=== PATIENT | male | born 1955 | race Caucasian/White ===

== ENCOUNTER → 2020-09-15 09:19 | Outpatient (BNVA) | payer OTHER, SELFPAY | PROVIDERS: Family Provider Nurse Practitioner Family; PCP Nurse Practitioner Family; Visit Provider Registered Nurse | DX: I10 Essential (primary) hypertension (principal); L82.1 Other seborrheic keratosis; Z85.828 Personal history of other malignant neoplasm of skin | CPT/HCPCS: 80053; 80061; 81000; 85025 ==

== ENCOUNTER → 2021-02-27 16:16 | Outpatient (BNVA) | payer OTHER, SELFPAY | PROVIDERS: Family Provider Nurse Practitioner Family; PCP Nurse Practitioner Family; Visit Provider Registered Nurse | DX: R39.9 Unspecified symptoms and signs involving the genitourinary system (principal) | CPT/HCPCS: 81000; 87086 ==

== ENCOUNTER → 2021-10-25 09:56 | Outpatient (BNVA) | payer OTHER, SELFPAY | PROVIDERS: Family Provider Nurse Practitioner Family; PCP Nurse Practitioner Family; Visit Provider Registered Nurse | DX: Z12.5 Encounter for screening for malignant neoplasm of prostate (principal); I10 Essential (primary) hypertension; E78.5 Hyperlipidemia, unspecified | CPT/HCPCS: 80053; 80061; 84153; 85025 ==

== ENCOUNTER → 2022-09-25 09:39 | Outpatient (BNVA) | payer MEDICARE, OTHER, SELFPAY | PROVIDERS: Family Provider Nurse Practitioner Family; PCP Registered Nurse; Visit Provider Registered Nurse | DX: I10 Essential (primary) hypertension (principal); Z12.5 Encounter for screening for malignant neoplasm of prostate | CPT/HCPCS: 80053; 80061; 85025; G0103 ==

== ENCOUNTER → 2023-07-31 08:48 | Outpatient (BNVA) | payer MEDICARE, OTHER, SELFPAY | PROVIDERS: Family Provider Nurse Practitioner Family; PCP Registered Nurse; Visit Provider Registered Nurse | DX: Z00.00 Encounter for general adult medical examination without abnormal findings (principal); Z12.5 Encounter for screening for malignant neoplasm of prostate; I10 Essential (primary) hypertension; Z71.85 Encounter for immunization safety counseling; Z71.3 Dietary counseling and surveillance; Z71.82 Exercise counseling; R79.89 Other specified abnormal findings of blood chemistry | CPT/HCPCS: 80053; 84402; 84403; 85025; G0103 ==

== ENCOUNTER → 2023-08-01 13:14 | Outpatient (BNVA) | payer MEDICARE, OTHER, SELFPAY | PROVIDERS: Family Provider Nurse Practitioner Family; PCP Registered Nurse; Visit Provider Registered Nurse | DX: Z00.00 Encounter for general adult medical examination without abnormal findings (principal); Z12.5 Encounter for screening for malignant neoplasm of prostate; I10 Essential (primary) hypertension; Z71.85 Encounter for immunization safety counseling; Z71.3 Dietary counseling and surveillance; Z71.82 Exercise counseling; R79.89 Other specified abnormal findings of blood chemistry; R73.9 Hyperglycemia, unspecified | CPT/HCPCS: 83036 ==

== ENCOUNTER 2024-08-04 10:45 | Outpatient (CLI) | payer MEDICARE, OTHER, SELFPAY ==
--- NOTE | 2024-08-04 10:52 | XRR_ITS ---
PROCEDURE INFORMATION: Exam: XR Right Hip Exam date and time: 08/04/2024 11:03 AM Age: 69 years old Clinical indication: Hip pain; Right hip; Patient HX: Pain in posterio-lateral aspect of hip, pain runs down into upper leg, worsening pain over past 1 month; Additional info: M25.551 - pain in right hip TECHNIQUE: Imaging protocol: Radiologic exam of the right hip. Views: 1 view hip with pelvis when performed. COMPARISON: CT abdomen pelvis wo con [id number] 08/07/2018 12:46 PM FINDINGS: Bones/joints: No fracture or dislocation is noted. There is joint space narrowing with osteophyte formation involving the superolateral joint space. Bony mineralization is normal. Right SI joint is normal. Soft tissues: Unremarkable. XR/XR hip RT 2-3V wo/w pel* [id number] IMPRESSION: 1. Osteoarthritis.
== END 2024-08-04 10:46 | disposition home or self-care (01) ==
LOC: RAD 10:49
PROVIDERS: Family Provider Nurse Practitioner Family; PCP Registered Nurse; Visit Provider Registered Nurse
DX: M16.11 Unilateral primary osteoarthritis, right hip (principal); M24.151 Other articular cartilage disorders, right hip
CPT/HCPCS: 73502

== ENCOUNTER → 2024-08-17 13:33 | Outpatient (BNVA) | payer MEDICARE, OTHER, SELFPAY | PROVIDERS: Family Provider Nurse Practitioner Family; PCP Registered Nurse; Visit Provider Specialist | DX: M16.11 Unilateral primary osteoarthritis, right hip (principal) | CPT/HCPCS: 73502; 99204 ==

== ENCOUNTER → 2024-08-20 11:11 | Outpatient (BNVA) | payer MEDICARE, OTHER, SELFPAY | PROVIDERS: Family Provider Nurse Practitioner Family; PCP Registered Nurse; Visit Provider Registered Nurse | DX: Z13.6 Encounter for screening for cardiovascular disorders (principal) | CPT/HCPCS: 80053; 80061; 85025 ==

== ENCOUNTER 2024-09-23 09:43 | Outpatient (RCR) | payer MEDICARE, SELFPAY | END 2024-10-10 23:59 | disposition home or self-care (01) | LOC: SPT 09:43 | PROVIDERS: Visit Provider Specialist | DX: M53.3 Sacrococcygeal disorders, not elsewhere classified (principal) | CPT/HCPCS: 97110; 97140; 97161 ==

== ENCOUNTER 2024-10-11 06:00 | Outpatient (RCR) | payer MEDICARE, SELFPAY | END 2024-10-21 23:59 | disposition home or self-care (01) | LOC: SPT 06:00 | PROVIDERS: Visit Provider Specialist | DX: M53.3 Sacrococcygeal disorders, not elsewhere classified (principal) | CPT/HCPCS: 97110 ==

== ENCOUNTER → 2025-09-02 08:47 | Outpatient (BNVA) | payer MEDICARE, SELFPAY | PROVIDERS: PCP Registered Nurse; Visit Provider Registered Nurse | DX: I10 Essential (primary) hypertension (principal); Z13.1 Encounter for screening for diabetes mellitus; Z12.5 Encounter for screening for malignant neoplasm of prostate | CPT/HCPCS: 80053; 80061; 83036; 85025; G0103 ==